=== PATIENT | male | born 1990 ===

== ENCOUNTER 2023-02-22 11:06 | Inpatient (IN) | payer MEDICAID, OTHER ==
[2023-02-22] MEDS ORDERED: HALOPERIDOL LACTATE 5 MG/ML 1 ML VIAL IM PRN (18:00)
[2023-02-22] MEDS ORDERED: MAGNESIUM HYDROXIDE 2,400 MG/30 ML CUP PO PRN (18:00)
[2023-02-22] MEDS ORDERED: haloperidoL 5 MG TAB PO PRN (18:00)
[2023-02-22] MEDS ORDERED: MAG HYDROX/AL HYDROX/SIMETH 30 ML CUP PO PRN (18:00)
[2023-02-22] MEDS ORDERED: ACETAMINOPHEN TAB 325 MG TAB PO PRN (18:00)
[2023-02-22] MEDS: NICOTINE 14MG/24HR PATCH TRANSDERM SCH (19:10)
[2023-02-23 11:01] VITALS: BMI 18.5
[2023-02-23] MEDS: NICOTINE 14MG/24HR PATCH TRANSDERM SCH (11:53)
[2023-02-23] MEDS: ESCITALOPRAM 5 MG TAB PO SCH (11:53)
[2023-02-23] MEDS: ARIPiprazole 5 MG TAB PO SCH (11:54)
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
[2023-02-24] MEDS: ARIPiprazole 5 MG TAB PO SCH (08:00)
[2023-02-24] MEDS: ESCITALOPRAM 5 MG TAB PO SCH (08:00)
[2023-02-24] MEDS: NICOTINE 14MG/24HR PATCH TRANSDERM SCH (08:01)
[2023-02-24] MEDS ORDERED: traZODone HCL 50 MG TAB PO PRN (09:59)
--- NOTE | 2023-02-24 10:05 | P.PN ---
Progress Note - Text Progress Note Date: 02/24/23 Interval history: Patient was seen wandering the hallways today and was agreeable to speak to wr rachel in the office. Patient continues to ramble at times, difficult to redirect. He states that he is feeling more focused today and claims that his mood is more stable today. states that he is enjoying and participate in group and showed display card writer his colorings and also worksheets. he states that he is feeling more optomistic about his meds and treatment at this time. he states that he wants med for sleep and sytates that his appetite is improving. he is denying any AH or VH and denysing any SI or HI. no reporting any side effects. Mental status examination: General Appearance: Patient appears to be thin, short in stature, wearing glasses, stated age is alert, [directable, and attempts to cooperate]. Patient appears to have improving hygiene and grooming. Behavior: Patient is seated without any agitated behavior. [place] and direct Speech: Patient's speech is [fluent and nonpressured.] [place], monotone. Mood/Affect: Patient reports their mood is [improving mildly], affect is congru ent Suicidality/Homicidality: Patient denies having any homicidal ideation intent or plan. [Denies any suicidal ideations intent or plan] Perceptions: Patient denies any visual hallucinations [and denies any auditory hallucinations] Though content/process: [There is no evidence of any delusional thought content and thought process is linear and goal-directed.] rambles. Memory and concentration: AOX3, grossly intact for the purposes of this session Judgment and insight: Limited, improving mildly IMPRESSIONS: Adjustment disorder with mixed anxiety and depressed mood hx of OCD Autism spectrum disorder nicotine depedence homelessness PLAN: -Patient is admitted under [voluntary] status to MHU for stabilization of psychiatric symptoms and safety. Patient has signed [adult voluntary form and] [medication consent] and is placed in patient's chart -Medications : Abilify by mouth 2.5 mg daily for mood stabilization, Lexapro 5 mg daily for mood/anxiety. added melatonin 6 mg qhs for sleep, trazodone prn for sleep. -Ativan [and Haldol] PRN for agitation/aggression -NRT - [nicotine patch] -SW on board for discharge planning. Encourage patient to participate in groups to work on coping skills. likely discharge in 2-3 days to either custodial or back to his home in [place].
--- NOTE | 2023-02-24 17:37 | P.HPMEDMHU ---
History of Present Illness H&P Date: 02/24/23 Patient is a 32-year-old male with no significant past medical history here in behavioral health unit. [facility] physicians has been consulted for medical management. He currently denies any chest pain, shortness of breath, abdominal pain, nausea, vomiting, urinary or bowel complaints. He smokes nicotine, denies any illicit drug use. He does drink alcohol occasionally. Pertinent positives and negatives as discussed in HPI, a complete review of systems was performed and all other systems are negative. Patient seen and examined at bedside. [] Vital signs reviewed General: nontoxic, no distress, appears at stated age Derm: warm, dry Head: atraumatic, normocephalic, symmetric Eyes: EOMI, no lid lag, anicteric sclera, pupils equal round reactive to light ENT: Nose and ears atraumatic Neck: No thyromegaly, supple Mouth: no lip lesion, mucus membranes moist Cardiovascular: S1S2 reg, no murmur, no edema Lungs: clear to auscultation bilateral, no rhonchi, no rales, no wheeze, no accessory muscle use Abdominal: soft, nontender to palpation, no guarding, no appreciable or ganomegaly Ext: no gross muscle atrophy, muscle strength muscle strength 5 out of 5 in all 4 extremities, no contractures Neuro: CN II-XII grossly intact Psych: Alert, oriented, appropriate affect Assessment/Plan: Depression/anxiety Nicotine dependence Alcohol use -A1c 5.0 -Vital signs reviewed -Nicotine patch has been ordered per psychiatry -Counseled regarding smoking and alcohol cessation -Rest of the care per psychiatry Thank you for allowing us to participate in the care of this pleasant patient. Do not hesitate to contact us with questions. Someone can be reached from the [facility] hospitalist group all hours of the day at [phone] or via [employer]. \ Past Medical History Smoking Status: Current every day smoker Medications and Allergies Home Medications Medication Instructions Recorded Confirmed Type No Known Home Medications 02/22/23 02/22/23 History Allergies Allergy/AdvReac Type Severity Reaction Status Date / Time No Known Allergies Allergy Verified 02/22/23 17:58 Physical Exam Vitals: Vital Signs Temp Pulse Resp BP 02/24/23 06:37 98.1 F 103 H 14 110/74 Cranial Nerve Examination - Cranial Nerves Cranial Nerve II- Optic: Intact Cranial Nerve III- Oculomotor: Intact Cranial Nerve IV- Trochlear: Intact Cranial Nerve V- Trigeminal: Intact Cranial Nerve - Abducens: Intact Cranial Nerve VII- Facial: Intact Cranial Nerve VIII- Auditory: Intact Cranial Nerve IX- Glossopharyngeal: Intact Cranial Nerve X- Vagus: Intact Cranial Nerve XI- Accessory: Intact Cranial Nerve XII- Hypoglossal: Intact Thrombosis Risk Factor Assmnt - Choose All That Apply Any of the Below Risk Factors Present?: No
[2023-02-24] MEDS: MELATONIN 3 MG TABLET PO SCH (20:47)
[2023-02-24] MEDS: LORazepam 1 MG TAB PO PRN (20:48)
[2023-02-25 06:58] VITALS: BP 116/80; PULSE 122; RESP 16; TEMP 98.5
[2023-02-25] MEDS: NICOTINE 14MG/24HR PATCH TRANSDERM SCH (08:15)
[2023-02-25] MEDS: ARIPiprazole 5 MG TAB PO SCH (08:16)
[2023-02-25] MEDS: ESCITALOPRAM 5 MG TAB PO SCH (08:16)
--- NOTE | 2023-02-25 11:52 | P.PN ---
Progress Note - Text Progress Note Date: 02/25/23 Interval history: Patient was seen wandering the hallways today and was agreeable to speak to wr iter in the office. Patient continues to ramble at times, this is improving. He states that he is feeling more focused today, saying that he is getting along well with others. He was thankful for his stay on the unit. States that his mood is more stable today, denies any anxiety. He continues to be fairly vague on which direction he would like to go for discharge planning and does not believe that he would be able to go back to his family home. He states that he is going to groups and participating. States that he needs to take an Ativan last night to sleep. his appetite is improving. he is denying any AH or VH and denysing any SI or HI. no reporting any side effects. Mental status examination: General Appearance: Patient appears to be thin, short in stature, wearing glasses, stated age is alert, directable, and attempts to cooperate. Patient appears to have improving hygiene and grooming. Behavior: Patient is seated without any agitated behavior. [place] and direct Speech: Patient's speech is fluent and nonpressured. [place], monotone. Mood/Affect: Patient reports their mood is improving mildly, affect is congruent Suicidality/Homicidality: Patient denies having any homicidal ideation intent or plan. Denies any suicidal ideations intent or plan Perceptions: Patient denies any visual hallucinations and denies any auditory hallucinations Though content/process: There is no evidence of any delusional thought content and thought process is linear and goal-directed. rambles. Memory and concentration: AOX3, grossly intact for the purposes of this session Judgment and insight: Limited, improving mildly IMPRESSIONS: Adjustment disorder with mixed anxiety and depressed mood hx of OCD Autism spectrum disorder nicotine depedence homelessness PLAN: -Patient is admitted under voluntary status to MHU for stabilization of psychiatric symptoms and safety. Patient has signed adult voluntary form and medication consent and is placed in patient's chart -Medications : Abilify by mouth 2.5 mg daily for mood stabilization, Lexapro 5 mg daily for mood/anxiety. melatonin 6 mg qhs for sleep, trazodone 50 mg qhs for sleep/mood. -Ativan and Haldol PRN for agitation/aggression -NRT - nicotine patch -SW on board for discharge planning. Encourage patient to participate in groups to work on coping skills. likely discharge to jail tomorrow, either [place] or [facility]. He refuses to stay with family or go back to house in [place].
[2023-02-25] MEDS: MELATONIN 3 MG TABLET PO SCH (20:12)
[2023-02-25] MEDS ORDERED: traZODone HCL 50 MG TAB PO SCH (21:00)
[2023-02-26] MEDS: LORazepam 1 MG TAB PO PRN (00:56)
[2023-02-26] MEDS: ARIPiprazole 5 MG TAB PO SCH (08:28)
[2023-02-26] MEDS: NICOTINE 14MG/24HR PATCH TRANSDERM SCH (08:28)
[2023-02-26] MEDS: ESCITALOPRAM 5 MG TAB PO SCH (08:29)
--- NOTE | 2023-02-26 10:22 | P.DS ---
Providers Date of admission: 02/22/23 16:27 Expected date of discharge: 02/26/23 Attending physician: Olvin Harvey MD Consults: 02/22/23 18:00 Consult Physician Routine Consulting Provider: Zaki Heller Consult Reason/Comments: h & p and medical care Do you want consulting provider notified?: Yes Primary care physician: Stated None - Discharge Diagnosis(es) (1) Adjustment disorder with mixed anxiety and depressed mood Current Visit: Yes Status: Acute Priority: High (2) History of OCD (obsessive compulsive disorder) Current Visit: Yes Status: Acute Priority: Medium (3) Autism spectrum disorder Current Visit: Yes Status: Acute Priority: High (4) Nicotine dependence Current Visit: Yes Status: Acute Priority: Low (5) Homelessness Current Visit: Yes Status: Acute Priority: Medium Hospital Course: Admission HPI: Admission note was completed by [marketing writer] "Patient is a []32-year-old male, currently homeless, single has no kids, he has no income at this time. Patient presented to the hospital as a transfer from a hospital in [place] on petition and certificate. Petition that stated the patient had a fight of ideas, was having a panic attack and also endorsing thoughts of self-harm. Patient was seen wandering the hallways and was agreeable to speak to marketing writer in the office today. Patient was fairly concrete and rambling at times. He claims that he has been having several stressors and losses in his life recently. He states that over a year ago his last friend committed suicide and then shortly afterwards his mother . He claims that he lost his car and now his family home where he was staying at his currently under probate and she will lose that as well. He states that he is having a significant amount of stressors all at once. States that his girlfriend left him. He claims that he was having a panic attack "came out of nowhere" and states that he called the police. He states that he didn't know what he said to the police however believe that he made gestures and verbalized that he wanted to harm himself. He claims that he was feeling depressed however has been feeling a bit better being on the unit and interacting with others. He claims that he does enjoy being on the unit at this time. States that he does have anxiety. He claims that his mood does fluctuate and has been irritable at times. He claims that he has a history of autism spectrum disorder and also has been diagnosed with OCD. States that this is his first psychiatric admission. Claims that his sleep is fair and appetite is on and off. Patient denies any current suicidal or homicidal ideations intent or plan. At this time patient denies any auditory or visual hallucinations. Patient denies any flight of ideas racing thoughts and increased in goal directed behavior. Patient admits to using []cigarettes daily, alcohol occasionally. Denies any other recreational drug use." Hospital course: Upon admission to the unit patient was [directable and agreeable to commence treatment and signed adult voluntary form]. Patient got along well with other patients on the unit and followed unit protocol. Patient was compliant with the medications and denied any side effects throughout hospital course. Patient was started on [Abilify 2.5 mg daily for mood stabilization, Lexapro 5 mg daily for mood/anxiety, melatonin 6 mg daily at bedtime for sleep, trazodone daily at bedtime for sleep/mood]. Patient spoke of [his] stressors and engaged in therapy both group and individual. Patient was also seen by medical team for history and physical exam. [] Throughout the course of the hospitalization patient gradually improved with regards to [mood, anxiety], sleep and [returned back to their baseline level of functioning]. On the day of discharge patient denied any suicidal or homicidal ideations intent or plan denied any auditory or visual hallucinations. Patient endorsed wanting to live for [his health, future and family.] The patient denied any access to guns or weapons. Patient denied any paranoia and did not endorse any delusions. Patient does [not] have a significant history of substance abuse [and] was counseled on abstaining from all substances including alcohol and marijuana. Patient was also counseled on the medications and need for regular compliance and was encouraged to follow-up with their outpatient appointment for mental health and also for primary care. Patient claims that he is not willing to go back to his previous family home and would rather stay with a friend in [facility] or go to the retirement in [facility]. Mental status exam: General Appearance: Patient appears to be short in stature, wearing glasses, thin stated age is alert, pleasant, and cooperative. Patient is in no acute distress and has improved hygiene and grooming Behavior: Patient is calmly seated without any agitated behavior. Speech: Patient's speech is fluent and nonpressured. [place] Mood/Affect: Patient reports their mood is "[good]", affect is congruent and euthymic. Suicidality/Homicidality: Patient denies having any suicidal or homicidal ideation intent or plan. Perceptions: Patient denies any auditory or visual hallucinations. Though content/process: There is no evidence of any delusional thought content and thought process is linear and goal-directed. [place] Memory and concentration: AOX3, grossly intact for the purposes of this session. Can spell "WORLD" backwards correctly. Judgment and insight: improved with guarded prognosis Impression: []Adjustment disorder with mixed anxiety and depressed mood History of OCD Autism spectrum disorder Homeless status [Nicotine dependence] Plan: -Continue with discharge today as patient has improved and stabilized psychiatrically and is not currently an imminent threat to [himself] and/or others. [Patient will remain at chronically elevated risk for harm to self and/or others due to his impulsivity] -Continue medications: Abilify by mouth 2.5 mg daily for mood stabilization, Lexapro 5 mg daily for mood/anxiety, melatonin 6 mg daily at bedtime for sleep, trazodone 25-50 mg qhs prn for insomnia. -Patient was counseled on the need for medication compliance and appropriate follow-up at mental health and also primary care for medical issues. Patient verbalized understanding and agreed. -Social work to help coordinate patients d/c today to either retirement vs staying with a friend. Social work also to arrange for patients follow up appointments [with [facility]] for psychiatric care along with follow up with primary care provider. -Patient counseled on abstaining from recreational drugs and marijuana and alcohol. Was informed/educated on the adverse effects on their physical and mental health. [Patient verbally agreed and understood]. -Patient was instructed to return to the hospital or seek immediate medical care if their psychiatric or medical symptoms do worsen or reoccur. Allergies Allergy/AdvReac Type Severity Reaction Status Date / Time No Known Allergies Allergy Verified 02/22/23 17:[address] Glu mg/dL 97 mg/dL 02/23/23 11:07 Hemoglobin A1c 5.0 % (<=6.0) 02/23/23 11:07 Vital Signs Temp 98.5 F 02/25/23 06:36 Pulse 122 H 02/25/23 06:36 Resp 16 02/25/23 06:36 BP 116/80 02/25/23 06:36 Pulse Ox 96 02/23/23 06:00 FiO2 Intake & Output 02/25/23 02/26/23 02/26/23 18:59 06:59 18:59 Weight 56.8 kg Patient Condition at Discharge: Stable Plan - Discharge Summary New Discharge Prescriptions: New traZODone HCL [Desyrel] 25 - 50 mg PO HS PRN 30 Days #15 tab PRN Reason: Insomnia Escitalopram [Lexapro] 5 mg PO DAILY 30 Days #30 tab Melatonin 6 mg PO HS 30 Days #60 tab ARIPiprazole [Abilify] 2.5 mg PO DAILY 30 Days #15 tab Nicotine 14Mg/24Hr Patch [Habitrol] 1 patch TRANSDERM DAILY 14 Days #14 patch Discharge Medication List ARIPiprazole [Abilify] 2.5 mg PO DAILY 30 Days #15 tab 02/26/23 [Rx] Escitalopram [Lexapro] 5 mg PO DAILY 30 Days #30 tab 02/26/23 [Rx] Melatonin 6 mg PO HS 30 Days #60 tab 02/26/23 [Rx] Nicotine 14Mg/24Hr Patch [Habitrol] 1 patch TRANSDERM DAILY 14 Days #14 patch 02/26/23 [Rx] traZODone HCL [Desyrel] 25 - 50 mg PO HS PRN 30 Days #15 tab 02/26/23 [Rx] Activity/Diet/Wound Care/Special Instructions: Avoid the use of street drugs and alcohol. Take all medications as prescribed. When you are in need of refills on your medications, please contact your medical provider and/or outpatient psychiatrist/provider to have this done. Please go to your scheduled outpatient appointment for aftercare treatment. If symptoms return or become worse, call the crisis line at and/or go to the nearest emergency room for evaluation. National Suicide Hotline 836. Discharge Disposition: OTHER INSTITUTION NOT DEFINED
== END 2023-02-26 14:28 | disposition home or self-care (01) | DRG 755 ==
LOC: 3MHU 16:27
PROVIDERS: ADMIT Psychiatry & Neurology Psychiatry; ATTEND Psychiatry & Neurology Psychiatry
DX: F43.23 Adjustment disorder with mixed anxiety and depressed mood (principal); F17.210 Nicotine dependence, cigarettes, uncomplicated; F42.9 Obsessive-compulsive disorder, unspecified; F84.0 Autistic disorder; F41.0 Panic disorder [episodic paroxysmal anxiety]; Z63.4 Disappearance and death of family member; Z79.899 Other long term (current) drug therapy; Z71.6 Tobacco abuse counseling; Z28.310 Unvaccinated for COVID-19; Z71.3 Dietary counseling and surveillance; Z59.00 Homelessness unspecified
CPT/HCPCS: 83036